=== PATIENT | female | born 2000 | race African-American/Black ===

== ENCOUNTER 2022-09-08 18:38 | Emergency (ER) | payer OTHER ==
[~2022-09-08] VITALS: Ht 157.5 cm; Wt 61.0 kg
[2022-09-08 18:54] VITALS: BP 134/72
[2022-09-08] MEDS ORDERED: LIDOCAINE HCL/PF 1% 10 MG/ML 5ML VIAL INFIL ONE (19:45)
== END 2022-09-08 22:22 | disposition home or self-care (01) ==
LOC: ER 18:38
DX: S01.01XA Laceration without foreign body of scalp, initial encounter (principal); R51.9 Headache, unspecified; W18.30XA Fall on same level, unspecified, initial encounter; Y93.89 Activity, other specified; Y92.89 Other specified places as the place of occurrence of the external cause; Y99.8 Other external cause status
CPT/HCPCS: 12002; 70450; 99284; J3490; Z7610